=== PATIENT | female | born 1975 | race Caucasian/White ===

== ENCOUNTER → 2020-10-09 | Day surgery (SDC) | payer OTHER | END | disposition home or self-care (01) | LOC: FMAMMOTONE 10:35 | PROVIDERS: ATTEND Surgery | PROC: 0H9U3ZX Drainage of Left Breast, Percutaneous Approach, Diagnostic (ICD-10-PCS; principal; 2020-10-09) | DX: D24.2 Benign neoplasm of left breast (principal) | CPT/HCPCS: 19081; 19082; 76098-TC-FY; 87899; A4648 ==